=== PATIENT | female | born 1965 | race Caucasian/White ===

== ENCOUNTER 2016-10-13 11:00 | Emergency (ER) | payer OTHER ==
--- NOTE | 2016-10-13 12:26 | REP ---
Clinical: Trauma with vertigo . Comparison: 07/14/2010. Findings: The ventricles, sulci, and cisterns are normal in position and appearance. Hall-white differentiation is maintained. No acute intracranial hemorrhage, mass/mass effect, pathology or trauma/injury. No evidence for acute infarction. No extra-axial fluid collection. Calvarium is intact. Paranasal sinuses and mastoid air cells are clear. Impression: Normal noncontrast head CT. No evidence for acute intracranial pathology or trauma/injury. Signed by Mars Beltran MD 10/13/2016 12:18 P
--- NOTE | 2016-10-13 12:28 | REP ---
Clinical: Trauma. Technique: Axial noncontrast images from the skull base to the thoracic inlet with coronal and sagittal re-formations. Comparison: 07/14/2010. Findings: Alignment and lordosis maintained. No acute fracture / compression injury or subluxation. Moderate multilevel degenerative changes include osteophytosis, endplate sclerosis, and disc space narrowing primarily involving C4-5 through T1-T2. Spinal canal is patent. Posterior elements and spinous processes are intact. Impression: Moderate multilevel degenerative changes. No evidence for acute cervical spine trauma/injury. Signed by Mars Beltran MD 10/13/2016 12:20 P
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
== END 2016-10-13 13:27 | disposition home or self-care (01) ==
LOC: M ED 11:00
DX: S09.90XA Unspecified injury of head, initial encounter (principal); W00.9XXA Unspecified fall due to ice and snow, initial encounter; Y92.89 Other specified places as the place of occurrence of the external cause; Y93.89 Activity, other specified; Y99.8 Other external cause status; Z79.899 Other long term (current) drug therapy; Z88.2 Allergy status to sulfonamides

== ENCOUNTER → 2016-10-21 | Outpatient (REF) | payer OTHER ==
[2016-10-21 14:13] LABS: FOLATE 14.3 NG/ML
[2016-10-21 14:23] LABS: VITAMIN B12 LEVEL 750 PG/ML
[2016-10-24 14:26] LABS: VITAMIN E LEVEL 19.5 mg/L (5.3-16.8)
== END ==
LOC: M LABNEURO 12:48
PROVIDERS: ATTEND Psychiatry & Neurology Neurology
DX: R41.3 Other amnesia (principal)

== ENCOUNTER → 2016-10-29 | Outpatient (REF) | payer OTHER ==
[2016-10-29 12:11] LABS: MEAN CORPUSCULAR HGB CONC 33.4 g/dl (32.0-36.5); RED CELL DISTRIBUTION WIDTH 12.1 % (11.5-14.5); WHITE BLOOD COUNT 5.4 K/mm3 (4.0-10.0)
[2016-10-29 13:00] LABS: ALBUMIN/GLOBULIN RATIO 1.33 (1.00-1.93); ALKALINE PHOSPHATASE 93 U/L (45-117); ALT/SGPT 26 U/L (12-78); ANION GAP 8 MEQ/L (8-16); AST/SGOT 20 U/L (15-37); BILIRUBIN,TOTAL 0.3 MG/DL (0.2-1.0); BLOOD UREA NITROGEN 17 MG/DL (7-18); CALCIUM LEVEL 9.1 MG/DL (8.5-10.1); CARBON DIOXIDE LEVEL 30 MEQ/L (21-32); CHLORIDE LEVEL 102 MEQ/L (98-107); CHOLESTEROL LEVEL 272 MG/DL (<200); CREATININE FOR GFR 0.62 MG/DL (0.55-1.02); GLOMERULAR FILTRATION RATE > 60.0 (>51); GLUCOSE, FASTING 79 MG/DL (70-105); POTASSIUM SERUM 4.6 MEQ/L (3.5-5.1); SODIUM LEVEL 140 MEQ/L (136-145); TRIGLYCERIDES LEVEL 161 MG/DL (<150)
== END ==
LOC: M SFHCLERA 08:52
PROVIDERS: ATTEND Family Medicine
DX: R94.5 Abnormal results of liver function studies (principal)

== ENCOUNTER → 2016-11-05 | Outpatient (CLI) | payer OTHER ==
--- NOTE | 2016-11-06 01:49 | REP ---
Clinical: Back pain. Technique: AP, lateral, bilateral oblique and coned-down views of the lumbosacral spine. Comparison: 06/24/2005. Findings: Alignment and lordosis is maintained. Moderate multilevel degenerative changes most pronounced at the L5-S1 level include endplate sclerosis with disc space narrowing and anterior spurring/osteophyte formation. Hypertrophic facet changes at the L4-5 and L5-S1 levels are also identified. There is no evidence for acute fracture / compression injury or subluxation. Impression: Moderate multilevel degenerative changes. Signed by Mars Beltran MD 11/06/2016 01:41 A
== END ==
LOC: M LRY 16:00
PROVIDERS: ATTEND Family Medicine
DX: M51.37 Other intervertebral disc degeneration, lumbosacral region (principal)

== ENCOUNTER 2017-03-29 01:34 | Emergency (ER) | payer OTHER ==
[~2017-03-29] VITALS: Ht 170.2 cm; Wt 71.8 kg
[2017-03-29] MEDS ORDERED: SING10TA32 PO (01:45)
[2017-03-29] MEDS ORDERED: SING4GRA PO (01:45)
[2017-03-29] MEDS ORDERED: ZYRT10CA PO (01:45)
[2017-03-29 01:46] VITALS: BP 112/73
== END 2017-03-29 04:30 | disposition left against medical advice (07) ==
LOC: M ED 04:12
DX: J02.9 Acute pharyngitis, unspecified (principal); Z53.29 Procedure and treatment not carried out because of patient's decision for other reasons

== ENCOUNTER → 2017-06-11 | Outpatient (CLI) | payer OTHER ==
[~2017-06-11] MED LIST: SING10TA32 PO; SING4GRA PO; ZYRT10CA PO
--- NOTE | 2017-06-12 14:29 | REP ---
Clinical: Pain primarily involving the distal radius. Technique: AP, lateral, bilateral oblique views left hand. Findings: The osseous structures and joint spaces of the right hand are intact and normal. There is no evidence for acute fracture or dislocation. Subtle increase sclerosis involving the distal radius and radial articular surface is appreciated and possibly related to chronic arthritic degenerative change with associated joint space narrowing noted. No obvious acute or definite healed fracture appreciated. Surrounding soft tissues are unremarkable. No subcutaneous emphysema or radiodense foreign body. Impression: Increased sclerosis involving the radial articular surface and distal radius with associated joint space narrowing suggests arthritic degenerative change. No obvious acute fracture or dislocation. Signed by Mars Beltran MD 06/11/2017 09:08 P
== END ==
LOC: M LRY 10:46
PROVIDERS: ATTEND Family Medicine
DX: M25.532 Pain in left wrist (principal)

== ENCOUNTER → 2017-06-25 | Outpatient (CLI) | payer OTHER ==
--- NOTE | 2017-06-25 09:08 | REP ---
Clinical: Pain. Comparison: 06/11/2017 Technique: AP, lateral, bilateral oblique views left wrist . Findings: Periarticular sclerosis and joint space narrowing at the radiocarpal joint is again identified and unchanged. The carpal bones and visualized osseous structures are otherwise intact without acute fracture or dislocation. Surrounding soft tissues appear relatively normal. Impression: Arthritic degenerative change suggested at the radiocarpal joint. Signed by Mars Beltran MD 06/25/2017 08:59 A
== END ==
LOC: M LRY 07:59
PROVIDERS: ATTEND Family Medicine
DX: M25.532 Pain in left wrist (principal)

== ENCOUNTER → 2017-07-30 | Outpatient (REF) | payer OTHER, MEDICAID | LOC: M SFHCLERA 17:42 | PROVIDERS: ATTEND Nurse Practitioner Family | DX: J02.9 Acute pharyngitis, unspecified (principal) ==

== ENCOUNTER 2017-12-04 12:54 | Emergency (ER) | payer OTHER ==
[2017-12-04] MEDS: NS 1,000 ML IV ×3 (14:02)
[2017-12-04] MEDS: PANTOPRAZOLE 40MG INJ (PROTONIX) (C9113) IV ×3 (14:02)
[2017-12-04] MEDS: ONDANSETRON 4MG/2ML VIAL (J2405) IV ×6 (14:02→16:33)
[2017-12-04] MEDS: MORPHINE 2 MG/ML 1ML SYRINGE (J2270) IV ×3 (14:03)
[2017-12-04 14:22] LABS: BASO % 0.1 % (0.0-1.0); EOS % 0.1 % (0.0-3.0); HEMATOCRIT 39.4 % (36.0-47.0); IMMATURE GRANULOCYTE % 0.3 % (0-3.0); LYMPH # 0.5 10^3/uL (1.5-4.5); LYMPH % 6.5 % (24.0-44.0); MEAN CORPUSCULAR HEMOGLOBIN 31.7 pg (27.0-33.0); MEAN CORPUSCULAR HGB CONC 35.5 g/dl (32.0-36.5); MEAN CORPUSCULAR VOLUME 89.1 fl (80.0-96.0); MONO # 0.5 10^3/uL (0.0-0.8); MONO % 7.1 % (0.0-5.0); NEUTROPHILS # 6.6 10^3/uL (1.8-7.7); NEUTROPHILS % 85.9 % (36.0-66.0); PLATELET COUNT, AUTOMATED 233 10^3/uL (150-450); RED BLOOD COUNT 4.42 10^6/uL (4.00-5.40); RED CELL DISTRIBUTION WIDTH 11.3 % (11.5-14.5); WHITE BLOOD COUNT 7.7 10^3/uL (4.0-10.0)
[2017-12-04 14:31] LABS: INR 0.98; PROTHROMBIN TIME 13.1 SECONDS (12.4-14.5)
[2017-12-04 14:32] LABS: KETONE, URINE AUTO RFX TRACE mg/dL (NEGATIVE); MUCUS, URINE RFX SMALL (NEGATIVE); NITRITE, URINE AUTO RFX NEGATIVE (NEGATIVE); PARTIAL THROMBOPLASTIN TIME 33.6 SECONDS (26.8-37.9); RBC, URINE AUTO RFX 2 /HPF (0-3); SQUAM EPITHELIAL CELL UR AURFX 23 /HPF (0-6); WBC, URINE AUTO RFX 4 /HPF (0-3)
[2017-12-04 14:33] LABS: LEUKOCYTE ESTERASE UR AUTO RFX 1+ (NEGATIVE)
[2017-12-04] MEDS: GASTROGRAFIN SOLUTION 30ML PO ×6 (14:39→15:08)
[2017-12-04 14:40] LABS: ALBUMIN 3.6 GM/DL (3.2-5.2); ALBUMIN/GLOBULIN RATIO 1.03 (1.00-1.93); ALKALINE PHOSPHATASE 99 U/L (45-117); ALT/SGPT 30 U/L (12-78); AMYLASE 45 U/L (25-115); ANION GAP 7 MEQ/L (8-16); AST/SGOT 27 U/L (7-37); BILIRUBIN,DIRECT 0.1 MG/DL (0.0-0.2); BILIRUBIN,TOTAL 0.6 MG/DL (0.2-1.0); BLOOD UREA NITROGEN 14 MG/DL (7-18); CALCIUM LEVEL 8.8 MG/DL (8.5-10.1); CARBON DIOXIDE LEVEL 27 MEQ/L (21-32); CHLORIDE LEVEL 103 MEQ/L (98-107); GLOMERULAR FILTRATION RATE > 60.0 (>51); GLUCOSE, FASTING 94 MG/DL (70-100); LIPASE 114 U/L (73-393); POTASSIUM SERUM 3.5 MEQ/L (3.5-5.1); SODIUM LEVEL 137 MEQ/L (136-145); TOTAL PROTEIN 7.1 GM/DL (6.4-8.2)
[2017-12-04 14:40] LABS: LACTIC ACID SEPSIS PROTOCOL 0.9 MMOL/L (0.4-2.0)
[2017-12-04] MEDS ORDERED: ISOVUE-370 76% 100ML VIAL (Q9967) As Ordered ×3 (15:41)
[2017-12-04] MEDS: GI COCKTAIL 50ML BTL(HYOSCYAMINE/MAALOX/LIDOCAINE VISCOUS)(1:3:1) PO ×3 (17:06)
== END 2017-12-04 17:09 | disposition home or self-care (01) ==
LOC: M ED 12:54
DX: K21.9 Gastro-esophageal reflux disease without esophagitis (principal); G43.909 Migraine, unspecified, not intractable, without status migrainosus; K44.9 Diaphragmatic hernia without obstruction or gangrene; Z79.899 Other long term (current) drug therapy; Z91.89 Other specified personal risk factors, not elsewhere classified; Z88.2 Allergy status to sulfonamides; Z88.8 Allergy status to other drugs, medicaments and biological substances
CPT/HCPCS: C9113

== ENCOUNTER → 2019-01-05 | Outpatient (CLI) | payer BC ==
[~2019-01-05] MED LIST changes: +MULT1CHW39 PO; +PROT1TAB2 PO; +SUCR1TA PO; +ZOFR4TAB14 PO
[2019-01-05 18:53] LABS: HEMATOCRIT 36.9 % (36.0-47.0); HEMOGLOBIN 12.9 g/dl (12.0-15.5); MEAN CORPUSCULAR HEMOGLOBIN 31.9 pg (27.0-33.0); MEAN CORPUSCULAR VOLUME 91.1 fl (80.0-96.0); PLATELET COUNT, AUTOMATED 335 10^3/uL (150-450); RED BLOOD COUNT 4.05 10^6/uL (4.00-5.40); WHITE BLOOD COUNT 6.5 10^3/uL (4.0-10.0)
[2019-01-05 19:23] LABS: ALT/SGPT 33 U/L (12-78); BILIRUBIN,TOTAL 0.3 MG/DL (0.2-1.0); BLOOD UREA NITROGEN 9 MG/DL (7-18); C REACTIVE PROTEIN QUANTITATIV < 0.30 MG/DL (0.00-0.30); CALCIUM LEVEL 9.3 MG/DL (8.5-10.1); CARBON DIOXIDE LEVEL 29 MEQ/L (21-32); CHLORIDE LEVEL 106 MEQ/L (98-107); CREATININE FOR GFR 0.66 MG/DL (0.55-1.30); GLOMERULAR FILTRATION RATE > 60.0 (>51); GLUCOSE, FASTING 87 MG/DL (70-100); LIPASE 154 U/L (73-393); POTASSIUM SERUM 4.2 MEQ/L (3.5-5.1); SODIUM LEVEL 140 MEQ/L (136-145); TOTAL PROTEIN 6.6 GM/DL (6.4-8.2)
== END ==
LOC: M LAB 18:08
PROVIDERS: ATTEND Internal Medicine Gastroenterology
DX: R10.30 Lower abdominal pain, unspecified (principal); K59.00 Constipation, unspecified; R11.10 Vomiting, unspecified

== ENCOUNTER 2019-02-24 10:31 | Emergency (ER) | payer BC ==
[~2019-02-24] VITALS: Ht 170.2 cm; Wt 68.2 kg
[~2019-02-24 10:31] MED LIST changes: -MULT1CHW39 PO; +MULT200T7 PO
[2019-02-24] MEDS ORDERED: OMEP-218 (10:48)
[2019-02-24] MEDS ORDERED: MOTR200T44 PO (10:48)
[2019-02-24] MEDS ORDERED: TIZA4TAB4 (10:48)
[2019-02-24] MEDS ORDERED: PRED10TA2 PO (12:22)
[2019-02-24] MEDS ORDERED: PERC5TAB12 PO (12:22)
--- NOTE | 2019-02-24 12:27 | REP ---
CT cervical spine without contrast HISTORY: Tenderness COMPARISON: 10/13/2016 There is no acute fracture or subluxation. The disc bulges are present at the C4-5 and C6-7 levels. A disc bulge with associated osteophyte formation is present at the C5-6 level. There is minimal narrowing of the spinal canal. Uncinate process and/or facet hypertrophy are present at the C2-3, C4-5 and C5-6 levels. These findings produce minimal narrowing of the neural foramina. The C4-5 and C5-6 intervertebral discs are decreased in height consistent with disc degeneration. IMPRESSION: 1. There is no acute fracture or subluxation. 2. There is cervical spondylosis at the C2-3 and C4-5 through C6-7 levels. Electronically Signed by Jason Swan MD 02/24/2019 12:19 P
[2019-02-24 12:31] VITALS: BP 124/61
== END 2019-02-24 12:35 | disposition home or self-care (01) ==
LOC: M ED 10:31
DX: S16.1XXA Strain of muscle, fascia and tendon at neck level, initial encounter (principal); X58.XXXA Exposure to other specified factors, initial encounter; Y92.89 Other specified places as the place of occurrence of the external cause; G43.909 Migraine, unspecified, not intractable, without status migrainosus; Z79.899 Other long term (current) drug therapy; Z88.2 Allergy status to sulfonamides; Z88.8 Allergy status to other drugs, medicaments and biological substances; Z91.048 Other nonmedicinal substance allergy status

== ENCOUNTER 2021-10-03 14:44 | Emergency (ER) | payer BC ==
[~2021-10-03] VITALS: Ht 170.2 cm; Wt 72.8 kg
[~2021-10-03 14:44] MED LIST changes: +MOTR200T44 PO; +OMEP-218; +PERC5TAB12 PO; +PRED10TA2 PO; +TIZA4TAB4
[2021-10-03] MEDS ORDERED: NABU-71 (14:59)
[2021-10-03] MEDS ORDERED: BACL10TA2 (14:59)
[2021-10-03] MEDS ORDERED: REST0.05 (14:59)
[2021-10-03] MEDS ORDERED: KETOROLAC 60MG 2ML VIAL IM ONE (17:15)
[2021-10-03] MEDS ORDERED: LIDOCAINE 5% (LIDODERM) PATCH TD ONE (17:15)
--- NOTE | 2021-10-03 17:46 | REP ---
INDICATION: bloated feeling, back pain COMPARISON: CT dated 12/04/2017 TECHNIQUE: Supine view of the abdomen and pelvis. FINDINGS: Bowel gas pattern is nonspecific and without obstruction or perforation. No organomegaly. No abnormal calcifications. Skeletal structures intact. IMPRESSION: Normal abdominal radiograph. Nonspecific bowel gas pattern. <Electronically signed by Mars Beltran > 10/03/21 [id number]
--- NOTE | 2021-10-03 18:14 | REPVR ---
PROCEDURE INFORMATION: Exam: CT Lumbar Spine Without Contrast Exam date and time: 10/03/2021 5:14 PM Age: 56 years old Clinical indication: Other: Pain si joints; Additional info: Back pain, si joint pain TECHNIQUE: Imaging protocol: Computed tomography images of the lumbar spine without contrast. Radiation optimization: All CT scans at this facility use at least one of these dose optimization techniques: automated exposure control; mA and/or kV adjustment per patient size (includes targeted exams where dose is matched to clinical indication); or iterative reconstruction. COMPARISON: CR SPINE LS COMPLETE 11/05/2016 4:05 PM FINDINGS: Vertebrae: No segmental lumbar vertebral malalignment. Vertebral body height and morphology is maintained. No acute fracture or destructive process. Discs/Spinal canal/Neural foramina: Multilevel degenerative disc height loss with reactive endplate osteophytes. Minimal degenerative retrolisthesis L2 relative to L3. Hypertrophic facet arthropathy at L4-L5 and L5-S1. Sacrum/coccyx: SI joints are unremarkable for age. Vasculature: No dilatation of the imaged distal abdominal aorta. Soft tissues: No significant soft tissue abnormality of the imaged retroperitoneum. IMPRESSION: 1. No acute or destructive osseous process. 2. Degenerative disc and facet arthropathy L2-L3, L4-L5 and L5-S1, moderate severity. 3. Normal appearing SI joints for age Electronically signed by: Elpidio Chandler On 10/03/2021 18:14:10 PM
[2021-10-03] MEDS ORDERED: PRED20TA PO (19:13)
[2021-10-03] MEDS ORDERED: ASPE4PAD TOP (19:13)
[2021-10-03] MEDS ORDERED: NAPR-837 PO (19:13)
[2021-10-03] MEDS ORDERED: METH-1165 PO (19:13)
[2021-10-03 19:33] VITALS: BP 119/56
[2021-10-04] MEDS ORDERED: **NOTE PATIENT COMMENT** MISC XX SCH (06:00)
== END 2021-10-03 19:45 | disposition home or self-care (01) ==
LOC: M ED 14:44
DX: M51.37 Other intervertebral disc degeneration, lumbosacral region (principal); M54.17 Radiculopathy, lumbosacral region; Z79.899 Other long term (current) drug therapy; Z88.2 Allergy status to sulfonamides; Z88.8 Allergy status to other drugs, medicaments and biological substances; Z91.89 Other specified personal risk factors, not elsewhere classified
CPT/HCPCS: 72131; 74018; 81001; 87086; 96372; 99283; J1885

== ENCOUNTER 2022-02-28 10:59 | Emergency (ER) | payer OTHER, MEDICAID ==
[~2022-02-28] VITALS: Ht 170.2 cm; Wt 70.5 kg
[~2022-02-28 10:59] MED LIST changes: +ASPE4PAD TOP; +BACL10TA2; +METH-1165 PO; +NABU-71; +NAPR-837 PO; +OMEP-173; -OMEP-218; +PRED20TA PO; +REST0.05; +TIZA10TA; -TIZA4TAB4
[2022-02-28] MEDS ORDERED: CYCL-707 PO (13:07)
[2022-02-28 13:18] VITALS: BP 120/57
== END 2022-02-28 13:20 | disposition home or self-care (01) ==
LOC: M ED 10:59
DX: S00.90XA Unspecified superficial injury of unspecified part of head, initial encounter (principal); M54.2 Cervicalgia; W22.8XXA Striking against or struck by other objects, initial encounter; Y92.89 Other specified places as the place of occurrence of the external cause; Y93.89 Activity, other specified; Y99.9 Unspecified external cause status; Z79.899 Other long term (current) drug therapy; Z88.2 Allergy status to sulfonamides; Z88.8 Allergy status to other drugs, medicaments and biological substances; Z91.89 Other specified personal risk factors, not elsewhere classified

== ENCOUNTER → 2022-06-24 | Outpatient (REF) | payer OTHER, MEDICAID ==
[~2022-06-24] MED LIST changes: +CYCL-707 PO; +MONT4GRA10 PO; -SING4GRA PO
== END ==
LOC: M LAB REF 19:48
PROVIDERS: ATTEND Student in an Organized Health Care Education/Training Program
DX: R30.0 Dysuria (principal)

== ENCOUNTER 2023-10-11 13:40 | Emergency (ER) | payer MEDICAID, OTHER ==
[~2023-10-11] VITALS: Ht 170.2 cm; Wt 75.0 kg
[~2023-10-11 13:40] MED LIST changes: +MONT-5 PO; -SING10TA32 PO
[2023-10-11 15:58] VITALS: BP 116/56; TEMP 97.9; O2SAT 99
[2023-10-11] MEDS ORDERED: LIDOCAINE 1% MDV 20ML VIAL SC ONE (16:50)
[2023-10-11] MEDS ORDERED: NEOSPORIN OINT 0.9 GM PKT TOP ONE (16:50)
[2023-10-11] MEDS ORDERED: DERMABOND TOPICAL SKIN ADHESIVE TOP ONE (17:25)
== END 2023-10-11 17:57 | disposition home or self-care (01) ==
LOC: M ED 13:40
DX: S61.511A Laceration without foreign body of right wrist, initial encounter (principal); W01.198A Fall on same level from slipping, tripping and stumbling with subsequent striking against other object, initial encounter; Y92.009 Unspecified place in unspecified non-institutional (private) residence as the place of occurrence of the external cause; Y93.89 Activity, other specified; Y99.9 Unspecified external cause status; Z88.2 Allergy status to sulfonamides; Z88.8 Allergy status to other drugs, medicaments and biological substances; Z91.048 Other nonmedicinal substance allergy status; Z79.83 Long term (current) use of bisphosphonates; Z79.52 Long term (current) use of systemic steroids; Z79.899 Other long term (current) drug therapy

== ENCOUNTER 2024-10-17 12:00 | Emergency (ER) | payer OTHER ==
[~2024-10-17] VITALS: Ht 170.2 cm; Wt 70.3 kg
[~2024-10-17 12:00] MED LIST changes: -MULT200T7 PO; +MULT200T9 PO
[2024-10-17 20:00] VITALS: BP 131/69; TEMP 97.3; O2SAT 99
== END 2024-10-17 20:07 | disposition home or self-care (01) ==
LOC: M ED 12:00
DX: S06.0X0A Concussion without loss of consciousness, initial encounter (principal); S00.03XA Contusion of scalp, initial encounter; W17.89XA Other fall from one level to another, initial encounter; Y99.1 Military activity; Y93.89 Activity, other specified; Y92.89 Other specified places as the place of occurrence of the external cause; Z88.2 Allergy status to sulfonamides; M50.321 Other cervical disc degeneration at C4-C5 level; M50.322 Other cervical disc degeneration at C5-C6 level